=== PATIENT | female | born 1955 | race Caucasian/White ===

== ENCOUNTER 2023-07-18 10:07 | Day surgery (SDC) | payer MEDICARE, OTHER ==
[~2023-07-18 10:07] MED LIST: Lactated Ringers 1,000 ML IV SCH; Midazolam 1 MG/ML 2 ML SDV ONE; Ropivacaine 0.5% 5 MG/ML 30 ML SDV ONE; Sodium Chloride 0.9% 10 ML Syringe FLUSH PRN; Sodium Chloride 0.9% 10 ML Syringe FLUSH SCH; dexmedeTOMIDine HCl 200 MCG/2 ML SDV ONE; fentaNYL 100 MCG/2 ML SDV ONE
[2023-07-18] MEDS ORDERED: Lidocaine 1% 6 ML ONE (10:09)
[2023-07-18] MEDS ORDERED: Bupivacaine 0.25% 10 ML SDV ONE (10:23)
[2023-07-18] MEDS ORDERED: Lidocaine 1% 10 ML MDV ONE (10:24)
[2023-07-18] MEDS ORDERED: EPINEPHrine 1 MG/ML SDV ONE (11:17)
[2023-07-18] MEDS ORDERED: dexmedeTOMIDine HCl 200 MCG/2 ML SDV ONE (11:17)
[2023-07-18] MEDS ORDERED: Dexamethasone 4 MG/ML 5 ML MDV ONE (11:17)
[2023-07-18] MEDS ORDERED: Propofol 200 MG/20 ML SDV ONE (11:45)
[2023-07-18] MEDS ORDERED: ceFAZolin 2 GM Vial ONE (11:51)
[2023-07-18] MEDS ORDERED: fentaNYL 100 MCG/2 ML SDV ONE (12:07)
[2023-07-18] MEDS ORDERED: Ondansetron 4 MG/2 ML SDV ONE (12:13)
[2023-07-18] MEDS ORDERED: Lactated Ringers 1,000 ML ONE (12:25)
== END 2023-07-18 14:55 | disposition home or self-care (01) ==
LOC: JD.SDS 10:07
PROVIDERS: ATTEND Orthopaedic Surgery
DX: S93.102A Unspecified subluxation of left toe(s), initial encounter (principal); M21.622 Bunionette of left foot; E78.2 Mixed hyperlipidemia; I10 Essential (primary) hypertension; E66.9 Obesity, unspecified; Z68.1 Body mass index [BMI] 19.9 or less, adult; X58.XXXA Exposure to other specified factors, initial encounter; Z88.1 Allergy status to other antibiotic agents; Z88.8 Allergy status to other drugs, medicaments and biological substances
CPT/HCPCS: 20680; 76000; C1713; C1769; J0171; J0690; J1100; J2250; J2405; J2704; J2795; J3010; J3490; J7120; 01480; 64450